=== PATIENT | male | born 1975 ===

== ENCOUNTER 2016-09-28 19:03 | Emergency (ER) | payer OTHER ==
[2016-09-28 19:03] VITALS: BMI 38.4
[2016-09-28 19:07] VITALS: PULSE 69; RESP 18; TEMP 98; O2SAT 99
[2016-09-28 19:08] VITALS: BP 105/75
[2016-09-28] MEDS ORDERED: Naproxen 550 mg Tab PO STA (19:44)
[2016-09-28] MEDS ORDERED: Dexamethasone 4 mg/1 ml IM STA (19:45)
[2016-09-28] MEDS ORDERED: Dexamethasone 4 mg/1 ml ONE (19:48)
[2016-09-28] MEDS ORDERED: Naproxen 550 mg Tab PO ONE (19:48)
--- NOTE | 2016-09-28 20:40 | C.PDOC ---
History Of Present Illness 41 year old male presents to the ED with complaints of lower back pain for the past week. Patient notes being seen in the [facility] clinic yesterday and was given toradol. He states the pain has persisted and denies any trauma, numbness, weakness, or bowel incontinence. Time Seen by Provider: 09/28/16 19:24 Chief Complaint (Nursing): Back Pain History Per: Patient History/Exam Limitations: no limitations Onset/Duration Of Symptoms: Days Current Symptoms Are (Timing): Still Present Quality Of Discomfort: "Pain" Severity: Mild Associated Symptoms: denies: Incontinence, New Weakness, New Numbness Exacerbating Factor(s): Turning, Movement Past Medical History Reviewed: Historical Data, Nursing Documentation, Vital Signs Vital Signs: Last Vital Signs Temp 98 F 09/28/16 19:05 Pulse 69 09/28/16 19:05 Resp 18 09/28/16 19:05 BP 105/75 09/28/16 19:07 Pulse Ox 99 09/28/16 21:16 - Medical History PMH: Hypercholesterolemia, Sleep Apnea Family History: States: No Known Family Hx - Social History Hx Tobacco Use: No Hx Alcohol Use: No Hx Substance Use: No - Immunization History Hx Tetanus Toxoid Vaccination: No Hx Influenza Vaccination: Yes Hx Pneumococcal Vaccination: No Review Of Systems Except As Marked, All Systems Reviewed And Found Negative. Constitutional: Negative for: Fever, Chills, Sweats Respiratory: Negative for: Cough, Shortness of Breath Gastrointestinal: Negative for: Nausea, Vomiting, Abdominal Pain, Diarrhea Musculoskeletal: Positive for: Back Pain (lower back pain) Neurological: Negative for: Weakness, Numbness, Headache, Dizziness Physical Exam - Physical Exam Appears: Non-toxic, No Acute Distress Skin: Warm, Dry Head: Atraumatic, Normacephalic Eye(s): bilateral: Normal Inspection, PERRL, EOMI Ear(s): Bilateral: Normal Oral Mucosa: Moist Neck: Normal ROM, Supple Chest: Symmetrical, No Deformity Cardiovascular: Rhythm Regular, No Friction Rub, No Murmur Respiratory: No Accessory Muscle Use, No Rales, No Rhonchi, No Stridor, No Wheezing Gastrointestinal/Abdominal: Soft, No Tenderness, No Distention, No Guarding, No Rebound Back: No Vertebral Tenderness, Paraspinal Tenderness (paralumbar tenderness) Extremity: Normal ROM, No Tenderness, No Swelling Neurological/Psych: Oriented x3, Normal Speech, Normal Cranial Nerves, Normal Motor, Normal Sensation Gait: Steady ED Course And Treatment O2 Sat by Pulse Oximetry: 99 (on RA) Pulse Ox Interpretation: Normal Medical Decision Making Medical Decision Making: On re-exam, the patient reports improvement of symptoms. Lungs are CTA, heart is RRR, ambulatory in the ED with steady gait. Follow up with the medical doctor /clinic within 1-2 days. Return if worsened. Disposition - Disposition Referrals: Shaik Austin MD [Staff Provider] - Ravinder Waite MD [Non-Staff] - Disposition: HOME/ ROUTINE Disposition Time: 20:39 Condition: GOOD Additional Instructions: Follow up with the medical doctor within 1-2 days. Return if worsened, Prescriptions: traMADol [Ultram] 50 mg PO Q6 PRN #20 tab PRN Reason: Pain Instructions: Acute Low Back Pain (DC) - Clinical Impression Clinical Impression: Low back pain - Scribe Statement The provider has reviewed the documentation as recorded by the Scribnatasha Webster All medical record entries made by the Scribe were at my direction and personally dictated by me. I have reviewed the chart and agree that the record accurately reflects my personal performance of the history, physical exam, medical decision making, and the department course for this patient. I have also personally directed, reviewed, and agree with the discharge instructions and disposition.
== END 2016-09-28 20:43 | disposition home or self-care (01) ==
LOC: C.ER 19:03
DX: M54.5 Low back pain (principal)
CPT/HCPCS: 96372; 99283; J1100

== ENCOUNTER 2017-05-18 11:00 | Emergency (ER) | payer OTHER ==
[2017-05-18 11:00] VITALS: BMI 38.4
[2017-05-18] MEDS ORDERED: Amoxicillin-Clav 875-125 mg Tab PO STA (12:18)
--- NOTE | 2017-05-18 12:46 | C.PDOC ---
History Of Present Illness 41 yo male w/o significant PMHx come in for evaluation of bodychaes, chills, nasal congestion runny nose, sore throat gradually developed for past few days. Otherwise, pt denies high fever, headache, dizziness, drooling, neck pain, CP, SOB, cough, dyspnea, wheezing, abd. pain, V/D, back pain, UTI sx. Ambulate to ED for evaluation, not in any apparent distress. Time Seen by Provider: 05/18/17 11:23 Chief Complaint (Nursing): Fever History Per: Patient Onset/Duration Of Symptoms: Gradual Past Medical History Reviewed: Historical Data, Nursing Documentation, Vital Signs Vital Signs: Last Vital Signs Temp 98.3 F 05/18/17 11:15 Pulse 68 05/18/17 11:15 Resp 16 05/18/17 11:15 BP 108/68 05/18/17 11:15 Pulse Ox 99 05/18/17 11:15 - Medical History PMH: Hypercholesterolemia, Sleep Apnea Family History: States: No Known Family Hx - Social History Hx Tobacco Use: No Hx Alcohol Use: No Hx Substance Use: No - Immunization History Hx Tetanus Toxoid Vaccination: No Hx Influenza Vaccination: Yes Hx Pneumococcal Vaccination: No Review Of Systems Except As Marked, All Systems Reviewed And Found Negative. Constitutional: Positive for: Chills. Negative for: Fever Eyes: Negative for: Vision Change, Redness ENT: Positive for: Nose Discharge, Nose Congestion, Throat Pain, Throat Swelling. Negative for: Ear Discharge Respiratory: Negative for: Cough, Shortness of Breath, Wheezing Gastrointestinal: Negative for: Nausea, Vomiting, Abdominal Pain Genitourinary: Negative for: Dysuria Musculoskeletal: Negative for: Neck Pain, Back Pain Skin: Negative for: Rash Neurological: Negative for: Altered Mental Status Physical Exam - Physical Exam Appears: Well, Non-toxic, No Acute Distress Skin: Normal Color, Warm, Dry, No Rash Head: Normacephalic Eye(s): bilateral: PERRL Ear(s): Bilateral: Normal Nose: No Flaring, Discharge (B/L nasal congestion with scant clear rhinorhhea) Oral Mucosa: Moist Tongue: Normal Appearing Lips: Normal Appearing Throat: Erythema (mod with mild edema), Exudate (scant, Right), No Drooling Neck: Trachea Midline, Supple Lymphatic: No Adenopathy Cardiovascular: Rhythm Regular, No JVD Respiratory: No Decreased Breath Sounds, No Accessory Muscle Use, No Stridor, No Wheezing Gastrointestinal/Abdominal: Soft, No Tenderness, No Distention, No Guarding Extremity: Normal ROM, No Deformity, No Swelling Neurological/Psych: Oriented x3, Normal Speech, Normal Cognition ED Course And Treatment O2 Sat by Pulse Oximetry: 99 Pulse Ox Interpretation: Normal Progress Note: On re-eval, pt is afebrile, hemodynamicaly stable. Non-toxic. Tolerate Po well in ED. PulseOx 99% RA. ENT: exam c/w acute pharyngitis. neck : Supple, (-) meningeal sign. Lungs: CTA B/L, BS equal B/L. ABd: benign. Influenza (-). Pt advised on course of ds. ref. to f/u with PMD in 2-3 days for re-eval. return to ED if any worsening or new changes. Disposition Counseled Patient/Family Regarding: Studies Performed, Diagnosis, Need For Followup, Rx Given - Disposition Referrals: Shaik Austin MD [Staff Provider] - Disposition: HOME/ ROUTINE Disposition Time: 12:23 Condition: STABLE Additional Instructions: ENCOURAGE FLUIDS TAKE MEDICATION PRESCRIBED FOLLOW UP WITH PMD IN 2-3 DAYS FOR RE-EVALUATION. RETURN TO ED IF ANY WORSENING OR NEW CHANGES. Prescriptions: Amoxicillin/Clavulanate [Augmentin 875 MG-125 MG] 1 tab PO BID #14 tab Ibuprofen [Motrin Tab] 400 mg PO Q6 #20 tab Prednisone [Deltasone] 40 mg PO DAILY #6 tablet Instructions: Pharyngitis (ED) Forms: [facility] (Chinese), Work Excuse - Clinical Impression Clinical Impression: Pharyngitis
[2017-05-18] MEDS ORDERED: Amoxicillin-Clav 875-125 mg Tab PO ONE (13:10)
[2017-05-18 13:25] VITALS: BP 100/63; PULSE 75; RESP 20; TEMP 97.9; O2SAT 98
== END 2017-05-18 13:23 | disposition home or self-care (01) ==
LOC: C.ER 11:00
DX: J02.9 Acute pharyngitis, unspecified (principal); E78.00 Pure hypercholesterolemia, unspecified

== ENCOUNTER 2017-05-30 09:01 | Emergency (ER) | payer OTHER ==
[2017-05-30 09:01] VITALS: BMI 38.4
[2017-05-30 09:24] VITALS: BP 120/84; PULSE 84; RESP 18; TEMP 98.1; O2SAT 98
--- NOTE | 2017-05-30 09:57 | C.PDOC ---
History Of Present Illness Yuriy Marrero is a 41 y/o male, who is otherwise well, presenting to the ED for evaluation of a left hand injury. Patient is an employee at [employer]. He reports that a heavy cabinet door shut on his left hand, resulting in pain to the dorsum of the hand with associated swelling. No other complaints. PMD: Dr. Shaik Norman MD Time Seen by Provider: 05/30/17 09:22 Chief Complaint (Nursing): Finger,Hand,&Wrist History Per: Patient History/Exam Limitations: no limitations Onset/Duration Of Symptoms: Days (x 1) Current Symptoms Are (Timing): Still Present Past Medical History Reviewed: Historical Data, Nursing Documentation, Vital Signs Vital Signs: Last Vital Signs Temp 98.1 F 05/30/17 09:15 Pulse 84 05/30/17 09:15 Resp 18 05/30/17 09:15 BP 120/84 05/30/17 09:15 Pulse Ox 98 05/30/17 09:57 - Medical History PMH: Hypercholesterolemia, Sleep Apnea Other Surgeries: Right ankle surgery Family History: States: Unknown Family Hx - Social History Hx Tobacco Use: No Hx Alcohol Use: Yes Hx Substance Use: No - Immunization History Hx Tetanus Toxoid Vaccination: No Hx Influenza Vaccination: Yes (03/2017) Hx Pneumococcal Vaccination: No Review Of Systems Except As Marked, All Systems Reviewed And Found Negative. Musculoskeletal: Positive for: Hand Pain (left) Neurological: Negative for: Weakness, Numbness Physical Exam - Physical Exam Appears: Non-toxic, No Acute Distress Extremity: Tenderness (over the 2nd and 3rd metacarpal phalangeal joints with some bruising), Capillary Refill (< 2 sec) Pulses: Left Radial: Normal, Right Radial: Normal Neurological/Psych: Oriented x3, Normal Speech ED Course And Treatment O2 Sat by Pulse Oximetry: 98 (RA) Pulse Ox Interpretation: Normal - Other Rad X-Ray Left Hand X-Ray: Read By Radiologist Interpretation: No evidence of acute displaced fracture nor dislocation. Medical Decision Making Medical Decision Making: Time: 9:37 Initial Impression: 41 year old male with left hand injury Initial Plan: * Tylenol 975 mg PO * Motrin 600 mg PO * X-Ray Left Hand X-Ray shows no fracture, as read by me. Patient is medically stable and will follow up with orthopedist or primary doctor for further evaluation. There is agreement to discharge plan. Return to ER if symptoms worsen. Disposition Counseled Patient/Family Regarding: Studies Performed, Diagnosis, Need For Followup - Disposition Disposition: HOME/ ROUTINE Disposition Time: 09:55 Condition: STABLE Instructions: RICE Therapy (ED) Forms: [facility] (Yoruba) - POA Present On Arrival: None - Clinical Impression Clinical Impression: Contusion of left hand - Scribe Statement The provider has reviewed the documentation as recorded by the Scribe (Bernadette Randall) All medical record entries made by the Scribe were at my direction and personally dictated by me. I have reviewed the chart and agree that the record accurately reflects my personal performance of the history, physical exam, medical decision making, and the department course for this patient. I have also personally directed, reviewed, and agree with the discharge instructions and disposition.
--- NOTE | 2017-05-30 10:34 | RAD ---
PROCEDURE: Left hand dated 05/30/2017. Three standard views left hand performed. No prior study available for comparison however correlation made with prior radiographs of the right hand 10/19/2015. HISTORY: Trauma COMPARISON: None. FINDINGS: BONES: No evidence of acute displaced fracture nor dislocation the osseous structures appear intact. No cortical destructive changes. JOINTS: Joint spaces preserved. No significant osteoarthritic changes. SOFT TISSUES: Normal. OTHER FINDINGS: None. IMPRESSION: No evidence of acute displaced fracture nor dislocation. If symptoms persist or occult fracture suspected clinically, consider repeat radiographs in 5-10 days as most fractures should become radiographically evident this timeframe. Normal left hand radiographs.
== END 2017-05-30 10:13 | disposition home or self-care (01) ==
LOC: C.ER 09:01
DX: S60.222A Contusion of left hand, initial encounter (principal); W23.0XXA Caught, crushed, jammed, or pinched between moving objects, initial encounter; Y92.238 Other place in hospital as the place of occurrence of the external cause; Y99.0 Civilian activity done for income or pay

== ENCOUNTER 2017-06-26 11:07 | Emergency (ER) | payer OTHER ==
[2017-06-26 11:11] VITALS: BMI 38.0
[2017-06-26 11:12] VITALS: BP 125/76; PULSE 93; RESP 18; TEMP 99.3; O2SAT 98
--- NOTE | 2017-06-26 11:51 | C.PDOC ---
History Of Present Illness 41 year old male, who is a [employer] employee, presents the ED for evaluation of hot/cold sensation, headache, sore throat, generalized body aches , runny nose, and cough which began yesterday. Patient reports he found relief after taking Tylenol. Patient denies chest pain, shortness of breath, nausea, vomiting. Time Seen by Provider: 06/26/17 11:35 Chief Complaint (Nursing): Flu-like Symptoms History Per: Patient History/Exam Limitations: no limitations Onset/Duration Of Symptoms: Hrs Current Symptoms Are (Timing): Still Present Location Of Pain: Diffuse Myalgias, Headache Associated Symptoms: Sore Throat, Cough Additional History Per: Patient Past Medical History Reviewed: Historical Data, Nursing Documentation, Vital Signs Vital Signs: Last Vital Signs Temp 99.3 F 06/26/17 11:11 Pulse 93 H 06/26/17 11:11 Resp 18 06/26/17 11:11 BP 125/76 06/26/17 11:11 Pulse Ox 98 06/26/17 13:48 - Medical History PMH: No Chronic Diseases Surgical History: No Surg Hx Family History: States: Unknown Family Hx Review Of Systems Constitutional: Positive for: Other (hot/cold sensation ) ENT: Positive for: Nose Discharge, Throat Pain Cardiovascular: Negative for: Chest Pain Respiratory: Positive for: Cough. Negative for: Shortness of Breath Gastrointestinal: Negative for: Nausea, Vomiting Musculoskeletal: Positive for: Other (generalized body aches ) Neurological: Positive for: Headache Physical Exam - Physical Exam Appears: Non-toxic, No Acute Distress Skin: Normal Color, Warm, Dry Head: Atraumatic, Normacephalic Eye(s): bilateral: Normal Inspection Ear(s): Bilateral: Normal Nose: Normal, No Discharge Oral Mucosa: Moist Throat: Normal, No Erythema, No Exudate Neck: Supple Cardiovascular: Rhythm Regular, No Murmur Respiratory: Normal Breath Sounds, No Rales, No Rhonchi, No Wheezing Extremity: Normal ROM, Capillary Refill (less than 2 seconds ) Neurological/Psych: Oriented x3, Normal Speech, Normal Cognition ED Course And Treatment O2 Sat by Pulse Oximetry: 98 (on RA) Pulse Ox Interpretation: Normal Medical Decision Making Medical Decision Making: Progress: Influenza A/B test ordered and resulted negative. Tamiflu PO, Motrin PO and Tylenol PO administered. Disposition Counseled Patient/Family Regarding: Diagnosis, Need For Followup - Disposition Disposition: HOME/ ROUTINE Disposition Time: 13:37 Condition: STABLE Prescriptions: Ibuprofen [Motrin] 600 mg PO TID #15 tab Oseltamivir [Tamiflu] 1 cap PO BID #10 cap Instructions: Viral Syndrome (ED) Forms: General Discharge Instructions, [facility] (Chadian), Work Excuse - POA Present On Arrival: None - Clinical Impression Clinical Impression: Influenza-like illness - Scribe Statement The provider has reviewed the documentation as recorded by the Scribe (Desiree Carter) Provider Attestation: All medical record entries made by the Scribe were at my direction and personally dictated by me. I have reviewed the chart and agree that the record accurately reflects my personal performance of the history, physical exam, medical decision making, and the department course for this patient. I have also personally directed, reviewed, and agree with the discharge instructions and disposition.
== END 2017-06-26 13:58 | disposition home or self-care (01) ==
LOC: MERGE 11:07 → C.ER 11:07
DX: J11.1 Influenza due to unidentified influenza virus with other respiratory manifestations (principal)

== ENCOUNTER 2017-09-17 07:00 | Observation (INO) | payer OTHER ==
[2017-09-17 07:00] VITALS: BMI 38.4
[2017-09-17] MEDS ORDERED: Sodium Chloride 0.9% 1,000 ML IV ONE (07:30)
[2017-09-17] MEDS ORDERED: Sodium Chloride 0.9% 1,000 ML ONE (07:37)
[2017-09-17 07:55] LABS: BASO # 0.2 K/uL (0.0-0.2); BASO % 1.2 % (0.0-2.0); EOS # 0.1 K/uL (0.0-0.7); HEMOGLOBIN 15.6 g/dL (12.0-18.0); LYMPH # 1.9 K/uL (1.0-4.3); LYMPH % 13.2 % (20.0-40.0); MEAN CELL VOLUME 87.6 fL (80.0-94.0); MEAN CORPUSCULAR HEMOGLOBIN 30.2 pg (27.0-31.0); MEAN CORPUSCULAR HGB CONC 34.4 g/dL (33.0-37.0); MEAN PLATELET VOLUME 9.7 fL (7.2-11.7); MONO # 1.4 K/uL (0.0-0.8); MONO % 9.9 % (0.0-10.0); NEUT # 10.9 K/uL (1.8-7.0); NEUT % 74.7 % (50.0-75.0); RBC 5.15 Mil/uL (4.40-5.90); RED CELL DISTRIBUTION WIDTH 13.9 % (11.5-14.5); WHITE BLOOD COUNT 14.6 K/uL (4.8-10.8)
[2017-09-17 08:00] LABS: URINE BILIRUBIN NEGATIVE (NEGATIVE); URINE BLOOD NEGATIVE (NEGATIVE); URINE CLARITY Clear (Clear); URINE COLOR Yellow (YELLOW); URINE GLUCOSE (UA) NORMAL (Normal); URINE LEUKOCYTE ESTERASE NEG Leu/uL (Negative); URINE PROTEIN NEGATIVE (NEGATIVE); URINE UROBILINOGEN NORMAL mg/dL (0.2-1.0)
[2017-09-17 08:07] LABS: ALB/GLOB RATIO 1.3 (1.0-2.1); ALBUMIN 4.4 g/dL (3.5-5.0); ALT/SGPT 41 U/L (21-72); AST/SGOT 42 U/L (17-59); BLOOD UREA NITROGEN 18 mg/dL (9-20); CALCIUM 8.8 mg/dl (8.6-10.4); GFR AFRICAN-AMERICAN > 60; GFR NON-AFRICAN AMERICAN > 60; LIPASE 97 U/L (23-300)
[2017-09-17] MEDS ORDERED: Iodixanol 320 mg/ml 150 ml Bottle IV ONE (09:06)
--- NOTE | 2017-09-17 09:41 | CT ---
EXAM: CT abdomen/pelvis with intravenous contrast CLINICAL HISTORY: Right-sided abdominal pain TECHNIQUE: 2.5 mm contiguous axial sections were acquired through the abdomen and pelvis following the intravenous administration of contrast material. Sagittal and coronal images were reformatted from the axial scan. . Intravenous contrast administered: 100 mL Visipaque 320 Total exam DLP: 1338.45 mGy-cm All CT scans at this facility use 1 or more dose reduction techniques, viz.: Automated exposure control; mA/kv adjustment per patient size (including targeted exams where dose is matched to indication ; i.e. head); or iterative reconstruction technique. COMPARISON: No relevant prior examination is available FINDINGS: The lung bases are free of consolidation or pleural effusion. The liver is normal in size, contour and attenuation. There is no mass. There is no biliary dilatation. The gallbladder is normal in appearance without evidence of cholelithiasis. There is no mural thickening or pericholecystic fluid The spleen is normal in size, and there is no evidence of focal mass. Pancreas is unremarkable. There is no mass or ductal dilatation seen. There is no peripancreatic fluid. There is no adrenal mass. There is no renal mass. There is mild right hydroureteronephrosis. There is an obstructing 7 mm calculus at the right ureterovesical junction. There is a nonobstructing 2 mm left lower pole renal calculus. There is no left hydronephrosis. There is no retroperitoneal or pelvic lymphadenopathy. There are no abnormal bowel loops appreciated. There is no bowel obstruction. A normal appendix is identified. The urinary bladder is significant for mild focal mural thickening at the level of the right ureterovesical junction, consistent with currently obstructed calculus at the UVJ. The prostate is normal in size. There is no ascites or pneumoperitoneum. There is no osseous abnormality appreciated. IMPRESSION: Obstructing 7 mm calculus at the right ureterovesical junction. 2 mm nonobstructing left lower pole renal calculus. Mild right hydroureteronephrosis. No other significant abnormality.
--- NOTE | 2017-09-17 10:27 | US ---
Testicular ultrasound History: Right testicular pain. Comparison: None available. Technique: Real-time sonography was performed through the scrotum. Findings: Right testes: 5.6 x 2.6 x 3.5 centimeters. Normal flow. Right epididymis: 1.8 x 1.0 x 1.4 centimeters. Normal flow. Left testes: 5.3 x 2.5 x 3.1 centimeters. Normal flow. Left epididymis: 1.4 x 0.9 x 1.4 centimeters. Normal flow. Impression: Unremarkable sonographic evaluation of the scrotum.
[2017-09-17] MEDS ORDERED: cefTRIAXone IV 1 gm in Dextros 50 ML IVPB ONE ×2 (10:37→10:45)
--- NOTE | 2017-09-17 11:04 | C.PDOC ---
History Of Present Illness 42 y/o male presents to the ER complaining of right-sided abdominal pain which has been present for the past 2 days.Patient reports that he has nausea and vomiting. Patient notes that he also had 1-2 short episodes of testicular pain. He denies having back pain, hematuria, dysuria, and trauma. Chief Complaint (Nursing): Male Genitourinary History Per: Patient History/Exam Limitations: no limitations Onset/Duration Of Symptoms: Days Current Symptoms Are (Timing): Still Present Severity: Moderate Associated Symptoms: Nausea, Vomiting. denies: Fever, Chills, Back Pain, Urinary Symptoms Past Medical History Reviewed: Historical Data, Nursing Documentation, Vital Signs Vital Signs: Last Vital Signs Temp 97.9 F 09/17/17 16:08 Pulse 82 09/17/17 16:08 Resp 18 09/17/17 16:08 BP 117/79 09/17/17 16:08 Pulse Ox 98 09/17/17 16:08 - Medical History PMH: Hypercholesterolemia, Sleep Apnea Other Surgeries: Hx of surgeries Family History: States: No Known Family Hx - Social History Hx Tobacco Use: No Hx Alcohol Use: Yes Hx Substance Use: No - Immunization History Hx Tetanus Toxoid Vaccination: Yes Hx Influenza Vaccination: Yes Hx Pneumococcal Vaccination: No Review Of Systems Except As Marked, All Systems Reviewed And Found Negative. Constitutional: Negative for: Fever, Chills Gastrointestinal: Positive for: Abdominal Pain (right-sided abdominal pain') Genitourinary: Positive for: Other (testicular pain). Negative for: Dysuria, Hematuria Musculoskeletal: Negative for: Back Pain Physical Exam - Physical Exam Appears: Non-toxic, No Acute Distress Skin: Normal Color, Warm Head: Atraumatic, Normacephalic Eye(s): bilateral: Normal Inspection Nose: Normal Oral Mucosa: Moist Neck: Supple Chest: Symmetrical Cardiovascular: Rhythm Regular Respiratory: Normal Breath Sounds, No Rales, No Rhonchi, No Wheezing Gastrointestinal/Abdominal: Soft, Tenderness (right-sided abdominal tenderness( lower > upper)) Neurological/Psych: Oriented x3, Normal Speech ED Course And Treatment - Laboratory Results Result Diagrams: 09/17/17 07:46 09/17/17 07:46 O2 Sat by Pulse Oximetry: 99 (RA) Pulse Ox Interpretation: Normal - CT Scan/US Testicular US Other Rad Studies (CT/US): Read By Radiologist, Radiology Report Reviewed CT/US Interpretation: Testicular ultrasound. History: Right testicular pain. Comparison: None available. Technique: Real-time sonography was performed through the scrotum. Findings: Right testes: 5.6 x 2.6 x 3.5 centimeters. Normal flow. Right epididymis: 1.8 x 1.0 x 1.4 centimeters. Normal flow. Left testes: 5.3 x 2.5 x 3.1 centimeters. Normal flow. Left epididymis: 1.4 x 0.9 x 1.4 centimeters. Normal flow. Impression: Unremarkable sonographic evaluation of the scrotum. CT abd/pelvis Other Rad Studies (CT/US): Read By Radiologist, Radiology Report Reviewed CT/US Interpretation: EXAM: CT abdomen/pelvis with intravenous contrast. CLINICAL HISTORY: Right-sided abdominal pain. TECHNIQUE: 2.5 mm contiguous axial sections were acquired through the abdomen and pelvis following the intravenous administration of contrast material. Sagittal and coronal images were reformatted from the axial scan. . Intravenous contrast administered: 100 mL Visipaque 320. Total exam DLP: 1338.45 mGy-cm. All CT scans at this facility use 1 or more dose reduction techniques, viz.: Automated exposure control; mA/kv adjustment per patient size (including targeted exams where dose is matched to indication ; i.e. head); or iterative reconstruction technique. COMPARISON: No relevant prior examination is available. FINDINGS: The lung bases are free of consolidation or pleural effusion. The liver is normal in size, contour and attenuation. There is no mass. There is no biliary dilatation. The gallbladder is normal in appearance without evidence of cholelithiasis. There is no mural thickening or pericholecystic fluid. The spleen is normal in size, and there is no evidence of focal mass. Pancreas is unremarkable. There is no mass or ductal dilatation seen. There is no peripancreatic fluid. There is no adrenal mass. There is no renal mass. There is mild right hydroureteronephrosis. There is an obstructing 7 mm calculus at the right ureterovesical junction. There is a nonobstructing 2 mm left lower pole renal calculus. There is no left hydronephrosis. There is no retroperitoneal or pelvic lymphadenopathy. There are no abnormal bowel loops appreciated. There is no bowel obstruction. A normal appendix is identified. The urinary bladder is significant for mild focal mural thickening at the level of the right ureterovesical junction, consistent with currently obstructed calculus at the UVJ. The prostate is normal in size. There is no ascites or pneumoperitoneum. There is no osseous abnormality appreciated. IMPRESSION: Obstructing 7 mm calculus at the right ureterovesical junction. 2 mm nonobstructing left lower pole renal calculus. Mild right hydroureteronephrosis. No other significant abnormality. Progress Note: Labs and CT-Abd & Pelv ordered. Patient given IV Fluids, Pepcid IV, Zofran IV, and Flomax PO. Case discussed with Dr. Troy Carter. Patient will be placed in observation for obstructive kidney stone. 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 - Scribe Statement The provider has reviewed the documentation as recorded by the Regis Koroma Provider Attestation: All medical record entries made by the Greyibnatasha were at my direction and personally dictated by me. I have reviewed the chart and agree that the record accurately reflects my personal performance of the history, physical exam, medical decision making, and the department course for this patient. I have also personally directed, reviewed, and agree with the discharge instructions and disposition.
--- NOTE | 2017-09-17 13:39 | CP.PCM.HP ---
Past Patient History - Infectious Disease Hx of Infectious Diseases: None - Past Social History Smoking Status: Current Some Days Smoker - CARDIAC Hx Hypercholesterolemia: Yes - PULMONARY Hx Sleep Apnea: Yes - PSYCHIATRIC Hx Substance Use: No - SURGICAL HISTORY Hx Surgeries: Yes Hx Orthopedic Surgery: Yes (R ankle) - ANESTHESIA Hx Anesthesia: Yes Hx Anesthesia Reactions: No Meds Allergies/Adverse Reactions: Allergies Allergy/AdvReac Type Severity Reaction Status Date / Time seasonal Allergy Uncoded 09/17/17 07:12 sister in law barbeque sauce Allergy Uncoded 09/17/17 07:12 Physical Exam - Constitutional Appears: Well - Head Exam Head Exam: ATRAUMATIC, NORMAL INSPECTION, NORMOCEPHALIC - Eye Exam Eye Exam: EOMI, Normal appearance, PERRL Pupil Exam: NORMAL ACCOMODATION, PERRL - ENT Exam ENT Exam: Mucous Membranes Moist, Normal Exam - Neck Exam Neck exam: Positive for: Normal Inspection - Respiratory Exam Respiratory Exam: Decreased Breath Sounds - Cardiovascular Exam Cardiovascular Exam: REGULAR RHYTHM, +S1, +S2 - GI/Abdominal Exam GI & Abdominal Exam: Diminished Bowel Sounds, Soft - Rectal Exam Rectal Exam: Deferred Results - Vital Signs Recent Vital Signs: Last Vital Signs Temp 98.7 F 09/17/17 10:20 Pulse 84 09/17/17 12:29 Resp 20 09/17/17 12:29 BP 128/87 09/17/17 12:29 Pulse Ox 98 09/17/17 12:29 - Labs Result Diagrams: 09/17/17 07:46 09/17/17 07:46 Labs: Laboratory Results - last 24 hr 09/17/17 09/17/17 09/17/17 07:46 07:46 07:46 WBC 14.6 H D RBC 5.15 Hgb 15.6 Hct 45.2 MCV 87.6 MCH 30.2 MCHC 34.4 RDW 13.9 Plt Count 217 MPV 9.7 Neut % (Auto) 74.7 Lymph % (Auto) 13.2 L [place] % (Auto) 9.9 Eos % (Auto) 1.0 Baso % (Auto) 1.2 Neut # (Auto) 10.9 H Lymph # (Auto) 1.9 [place] # (Auto) 1.4 H Eos # (Auto) 0.1 Baso # (Auto) 0.2 Sodium 139 Potassium 4.0 Chloride 99 Carbon Dioxide 25 Anion Gap 19 BUN 18 Creatinine 1.2 Est GFR ( Amer) > 60 Est GFR (Non-Af Amer) > 60 Random Glucose 125 H Calcium 8.8 Total Bilirubin 1.1 AST 42 ALT 41 Alkaline Phosphatase 63 Total Protein 7.9 Albumin 4.4 Globulin 3.5 Albumin/Globulin Ratio 1.3 Lipase 97 Urine Color Yellow Urine Clarity Clear Urine pH 6.0 Ur Specific [place] 1.011 Urine Protein Negative Urine Glucose (UA) Normal Urine Ketones Negative Urine Blood Negative Urine Nitrate Negative Urine Bilirubin Negative Urine Urobilinogen Normal Ur Leukocyte Esterase Neg Urine WBC (Auto) < 1 Urine RBC (Auto) 1
[2017-09-18] MEDS ORDERED: Lactated Ringer's 1,000 ML IV SCH (09:30)
--- NOTE | 2017-09-18 09:33 | CP.PCM.HP ---
History of Present Illness - History of Present Illness History of Present Illness: Chief Complaint: Abdominal Pain Mr. Marrero is a 42 year old Male with PMHx of HLD, Sleep Apnea presented to the ED with abdominal pain x 1 day. Patient reports he started to feel right testicular pain that radiated up into his right abdomen. Pain was sharp, intermittent, and associated with nausea. Patient took Tylenol which alleviated his pain. He Patient reports a few months ago he urinated and felt something sharp coming out of his urethra and heard a "clank" into the toilet bowl. Denied any associated fever, chills, dysuria, hematuria, or penile discharge. PMHx: HLD, Sleep Apnea PSHx: R ankle surgery Meds: Vitamins, [place] 3s All: NKDA SHx: Admits to smoking 2-4 cigarettes when he drinks socially, denied any illicit drug use FHx: Mother - HTN, Father- healthy Present on Admission - Present on Admission Any Indicators Present on Admission: No Past Patient History - Infectious Disease Hx of Infectious Diseases: None - Past Social History Smoking Status: Current Some Days Smoker - CARDIAC Hx Hypercholesterolemia: Yes - PULMONARY Hx Sleep Apnea: Yes - PSYCHIATRIC Hx Substance Use: No - SURGICAL HISTORY Hx Surgeries: Yes Hx Orthopedic Surgery: Yes (R ankle) - ANESTHESIA Hx Anesthesia: Yes Hx Anesthesia Reactions: No Meds Allergies/Adverse Reactions: Allergies Allergy/AdvReac Type Severity Reaction Status Date / Time seasonal Allergy Uncoded 09/17/17 07:12 sister in law barbeque sauce Allergy Uncoded 09/17/17 07:12 Physical Exam - Constitutional Appears: No Acute Distress - Head Exam Head Exam: NORMAL INSPECTION, NORMOCEPHALIC - Eye Exam Eye Exam: EOMI, Normal appearance, PERRL Pupil Exam: NORMAL ACCOMODATION - ENT Exam ENT Exam: Mucous Membranes Moist - Respiratory Exam Respiratory Exam: Clear to Auscultation Bilateral, NORMAL BREATHING PATTERN. absent: Decreased Breath Sounds, Wheezes - Cardiovascular Exam Cardiovascular Exam: REGULAR RHYTHM, RRR - GI/Abdominal Exam GI & Abdominal Exam: Normal Bowel Sounds, Soft. absent: Distended, Organomegaly , Tenderness - Rectal Exam Rectal Exam: Deferred - Exam Exam: absent: Scrotal Swelling - Extremities Exam Extremities exam: Positive for: normal inspection, pedal pulses present. Negative for: pedal edema, tenderness - Back Exam Back exam: CVA tenderness (R) - Neurological Exam Neurological exam: Alert, CN II-XII Intact, Oriented x3 - Psychiatric Exam Psychiatric exam: Normal Affect, Normal Mood - Skin Skin Exam: Dry, Intact, Normal Color, Warm Results - Vital Signs Recent Vital Signs: Last Vital Signs Temp 97.4 F L 09/18/17 07:00 Pulse 65 09/18/17 07:00 Resp 18 09/18/17 07:00 BP 112/73 09/18/17 07:00 Pulse Ox 99 09/18/17 07:00 - Labs Result Diagrams: 09/17/17 07:46 09/17/17 07:46 Assessment & Plan - Assessment and Plan (Free Text) Assessment: Mr. Marrero is a 42 year old Male with PMHx of HLD, Sleep Apnea presented to the ED with abdominal pain x 1 day. Patient was found to have a 7mm obstructing stone in the right ureterovesical junction. Plan: Nephrolithiasis with Obstructing Stone in (R) UVJ Hydroureteronephrosis Dr. Jonathan Boateng consulted - help appreciated Imaging: CT abdomen & pelvis: Obstructing 7mm calculus at the RIGHT UVJ. 2mm nonobstructing left lower pole renal calculus. Mild right hydroureteronephrosis Meds: LR @ 100cc/hr Analgesics as needed Gentamycin daily Hx HLD Hx Sleep Apnea DW Dr. Mcdonough, Cierra So DO, PGY-1
--- NOTE | 2017-09-18 11:35 | RAD ---
HISTORY: 7mm obstructing stone in right UVJ COMPARISON: September 17, 2017. CT abdomen and pelvis. Summary of findings on the comparison examination: Right UVJ calculus FINDINGS: BOWEL: Normal. No obstruction. No free air. BONES: Normal. OTHER FINDINGS: Calculus identified in the urinary bladder adjacent to the right is documented on the current study and marked for review. IMPRESSION: Calculus in the urinary bladder confirmation finding on recent CT scan.
--- NOTE | 2017-09-18 12:33 | PCM.URO ---
Urology Progress Note - Objective Lab Studies: Reviewed (dx: urolithiasis plans :full note to follow thanks for gu consult) Intake & Output: Intake & Output 09/17/17 09/18/17 09/18/17 18:59 06:59 18:59 Weight 265 lb Vital Signs: Vital Signs - 24 hr 09/17/17 09/17/17 09/17/17 15:34 16:08 17:46 Temperature 98.0 F 97.9 F Pulse Rate 82 82 Respiratory 18 18 Rate Blood Pressure 115/73 117/79 O2 Sat by Pulse 98 98 99 Oximetry 09/17/17 09/18/17 23:10 07:00 Temperature 99.1 F 97.4 F L Pulse Rate 74 65 Respiratory 20 18 Rate Blood Pressure 114/69 112/73 O2 Sat by Pulse 97 99 Oximetry
[2017-09-18 16:33] LABS: BASO # 0.2 K/uL (0.0-0.2); BASO % 1.6 % (0.0-2.0); EOS # 0.4 K/uL (0.0-0.7); EOS % 3.1 % (0.0-4.0); HEMOGLOBIN 15.6 g/dL (12.0-18.0); LYMPH # 2.3 K/uL (1.0-4.3); LYMPH % 18.7 % (20.0-40.0); MEAN CELL VOLUME 87.3 fL (80.0-94.0); MEAN CORPUSCULAR HEMOGLOBIN 29.4 pg (27.0-31.0); MEAN CORPUSCULAR HGB CONC 33.7 g/dL (33.0-37.0); MEAN PLATELET VOLUME 9.3 fL (7.2-11.7); MONO # 0.8 K/uL (0.0-0.8); MONO % 6.7 % (0.0-10.0); NEUT # 8.4 K/uL (1.8-7.0); NEUT % 69.9 % (50.0-75.0); RBC 5.3 Mil/uL (4.40-5.90); RED CELL DISTRIBUTION WIDTH 13.5 % (11.5-14.5)
[2017-09-18 16:46] LABS: ALB/GLOB RATIO 1.1 (1.0-2.1); ALBUMIN 4.4 g/dL (3.5-5.0); ALT/SGPT 65 U/L (21-72); AST/SGOT 47 U/L (17-59); BLOOD UREA NITROGEN 15 mg/dL (9-20); CALCIUM 8.9 mg/dl (8.6-10.4); GFR AFRICAN-AMERICAN > 60; GFR NON-AFRICAN AMERICAN > 60
[2017-09-18 16:49] VITALS: BP 117/78; PULSE 83; RESP 20; TEMP 99.4; O2SAT 98
--- NOTE | 2017-09-18 16:55 | CT ---
PROCEDURE: CT Abdomen and Pelvis without intravenous contrast HISTORY: 7mm obstructing stone in R UVJ COMPARISON: 09/17/2017 TECHNIQUE: Without contrast.. Contrast Dose: 0 Radiation dose: Total exam DLP = Total exam DLP = 1186.57 mGy-cm. This CT exam was performed using one or more of the following dose reduction techniques: Automated exposure control, adjustment of the mA and/or kV according to patient size, and/or use of iterative reconstruction technique. FINDINGS: LOWER THORAX: Unremarkable. LIVER: Unremarkable. No gross lesion or ductal dilatation. GALLBLADDER AND BILE DUCTS: Unremarkable. PANCREAS: Unremarkable. No gross lesion or ductal dilatation. SPLEEN: Unremarkable. ADRENALS: Unremarkable. No mass. KIDNEYS AND URETERS: There is some retained contrast material seen within the right renal parenchyma from prior examination of 09/17/2017. This likely resulted from mechanical urinary tract obstruction. There is no hydronephrosis. There is no renal mass. There is no renal calculus. There is no hydroureter. There is mild periureteric stranding. The previously identified calculus at the right ureterovesical junction is no longer evident. Please note that there is persistent mild focal mural thickening at the right ureterovesical junction. Though this may be the result of a recently passed calculus, consideration should be given to follow-up with cystoscopy to exclude neoplasm. There is a 2 mm left lower pole renal calculus. This is nonobstructing. There is no left hydronephrosis. There is no left renal mass. VASCULATURE: Unremarkable. No aortic aneurysm. BOWEL: Sigmoid diverticulosis. No evidence diverticulitis. No bowel obstruction. APPENDIX: Unremarkable. Normal appendix. PERITONEUM: Unremarkable. No free fluid. No free air. LYMPH NODES: Unremarkable. No enlarged lymph nodes. BLADDER: Focal mural thickening at right ureterovesical junction as above. Consider follow-up with cystoscopy. REPRODUCTIVE: Normal prostate BONES: No acute fracture. OTHER FINDINGS: None. IMPRESSION: Previously identified right ureterovesical junction calculus is no longer identified. No evidence of urinary tract dilatation. There is some retained contrast in the right renal parenchyma likely resulting from previously diagnosed obstruction. 2 mm nonobstructing left lower pole renal calculus. Mild focal mural thickening at the right ureterovesical junction. Consider follow-up with cystoscopy.
--- NOTE | 2017-09-18 17:57 | CP.PCM.PN ---
Subjective - Date & Time of Evaluation Date of Evaluation: 09/18/17 Time of Evaluation: 17:56 - Subjective Subjective: Patient had a repeat CT scan of the abdomen and pelvis without contrast. Reported as having no stone in the right UVJ junction, probably past. Hydronephrosis also improving. Related patient has no pain. I spoke to the urologist, patient can be discharged home today. I advised him to increase fluid intake. Came to reduce. Flomax daily. Patient will followup with the urologist this week, in my office next week. I will do a blood works including renal functions and will follow the patient Objective - Vital Signs/Intake and Output Vital Signs (last 24 hours): Temp Pulse Resp BP Pulse Ox 99.4 F 83 20 117/78 98 09/18/17 16:48 09/18/17 16:48 09/18/17 16:48 09/18/17 16:48 09/18/17 16:48 Intake and Output: 09/18/17 09/18/17 06:59 18:59 Intake Total 700 Balance 700 - Medications Medications: Current Medications Acetaminophen (Tylenol 325mg Tab) 650 mg PO Q6 PRN PRN Reason: Fever >100.4 F Lactated Ringer's (Lactated Ringer's) 1,000 mls @ 100 mls/hr IV .Q10H NILSA Last Admin: 09/18/17 09:50 Dose: 100 mls/hr Ketorolac Tromethamine (Toradol) 30 mg IVP Q6 PRN PRN Reason: Pain, severe (8-10) - Labs Labs: 09/18/17 16:24 09/18/17 16:24
[2017-09-18] MEDS ORDERED: Pneumococcal 23-Valent Vaccine IM ONE (17:59)
== END 2017-09-18 18:32 | disposition home or self-care (01) ==
LOC: C.ER 07:00 → C.9E 10:38 → C.5S 15:15
PROVIDERS: ADMIT Internal Medicine; ATTEND Internal Medicine
DX: N13.2 Hydronephrosis with renal and ureteral calculous obstruction (principal); Z87.891 Personal history of nicotine dependence; N50.811 Right testicular pain; G47.30 Sleep apnea, unspecified; E78.5 Hyperlipidemia, unspecified
CPT/HCPCS: 36415; 74019; 74176; 74177; 76870; 80053; 81001; 83690; 85025; 87040; 87086; 90471; 90732; 96360; 96374; 99285; G0378; J0696; J1580; J1885; J2405; J7040; J7120; Q9967

== ENCOUNTER 2018-08-09 11:00 | Emergency (ER) | payer OTHER ==
[2018-08-09 11:00] VITALS: BMI 38.4
[2018-08-09 11:11] VITALS: RESP 18
[2018-08-09] MEDS ORDERED: LIDOCAINE IV STA (11:14)
[2018-08-09] MEDS ORDERED: SODIUM CHLORIDE 0.9% IV STA (11:14)
[2018-08-09] MEDS ORDERED: Sodium Chloride 0.9% 1,000 ML IV STA (11:14)
[2018-08-09] MEDS ORDERED: Sodium Chloride 0.9% 1,000 ML ONE (11:28)
[2018-08-09 11:41] LABS: URINE BILIRUBIN NEGATIVE (NEGATIVE); URINE BLOOD 1+ (NEGATIVE); URINE CLARITY Clear (Clear); URINE COLOR Colorless (YELLOW); URINE GLUCOSE (UA) NORMAL (Normal); URINE LEUKOCYTE ESTERASE NEG Leu/uL (Negative); URINE PROTEIN NEGATIVE (NEGATIVE); URINE UROBILINOGEN NORMAL mg/dL (0.2-1.0)
[2018-08-09 11:51] LABS: BASO # 0.1 K/uL (0.0-0.2); BASO % 0.8 % (0.0-2.0); EOS # 0.3 K/uL (0.0-0.7); EOS % 3.8 % (0.0-4.0); LYMPH # 2.4 K/uL (1.0-4.3); LYMPH % 28.3 % (20.0-40.0); MEAN CELL VOLUME 87.8 fL (80.0-94.0); MEAN CORPUSCULAR HEMOGLOBIN 30.1 pg (27.0-31.0); MEAN CORPUSCULAR HGB CONC 34.3 g/dL (33.0-37.0); MEAN PLATELET VOLUME 9.2 fL (7.2-11.7); MONO # 0.6 K/uL (0.0-0.8); MONO % 6.5 % (0.0-10.0); NEUT # 5.1 K/uL (1.8-7.0); NEUT % 60.6 % (50.0-75.0); RBC 4.97 Mil/uL (4.40-5.90); RED CELL DISTRIBUTION WIDTH 13.6 % (11.5-14.5); WHITE BLOOD COUNT 8.5 K/uL (4.8-10.8)
[2018-08-09 12:01] LABS: ALB/GLOB RATIO 1.5 (1.0-2.1); ALBUMIN 4.7 g/dL (3.5-5.0); ALT/SGPT 66 U/L (21-72); AST/SGOT 54 U/L (17-59); BLOOD UREA NITROGEN 15 mg/dL (9-20); CALCIUM 8.9 mg/dl (8.6-10.4); GFR NON-AFRICAN AMERICAN > 60; LIPASE 215 U/L (23-300)
--- NOTE | 2018-08-09 12:21 | CT ---
PROCEDURE: CT Abdomen and Pelvis without Oral or IV contrast. HISTORY: l flank/abd pain COMPARISON: CT abdomen and pelvis performed 09/18/17, renal ultrasound 11/22/17 TECHNIQUE: Contiguous axial images of the abdomen and pelvis. No oral or IV contrast administered. Coronal and Sagittal reformats generated and reviewed. Radiation dose: Total exam DLP = 1309.03 mGy-cm. This CT exam was performed using one or more of the following dose reduction techniques: Automated exposure control, adjustment of the mA and/or kV according to patient size, and/or use of iterative reconstruction technique. FINDINGS: There is limited evaluation of the solid organs without the administration of IV contrast. LOWER THORAX: No visible consolidation, pleural effusion, or pneumothorax. Small hiatal hernia/distal esophageal wall thickening. LIVER: Unremarkable unenhanced appearance. GALLBLADDER AND BILE DUCTS: Unremarkable unenhanced appearance. PANCREAS: Unremarkable unenhanced appearance. SPLEEN: Unremarkable unenhanced appearance. ADRENALS: Unremarkable unenhanced appearance. KIDNEYS AND URETERS: No hydronephrosis or obstructing renal calculus. Punctate nonobstructing bilateral renal calculi. BLADDER: The urinary bladder appears unremarkable. REPRODUCTIVE: The prostate gland measures approximately 4.3 x 3.8 cm. APPENDIX: The appendix appears within normal limits of caliber. No secondary signs of acute appendicitis. BOWEL: The stomach is nondistended. Lack of oral contrast limits evaluation for bowel pathology. The bowel loops appear within normal limits of caliber without evidence of intestinal obstruction. PERITONEUM: No significant free fluid. No definite free air. LYMPH NODES: Prominent sub cm mesenteric and retroperitoneal lymph nodes, nonspecific. VASCULATURE: No atherosclerotic calcifications identified. No aortic aneurysm. BONES: Degenerative changes. OTHER FINDINGS: None. IMPRESSION: No hydronephrosis or obstructing renal calculus. Punctate nonobstructing bilateral renal calculi. Prominent sub cm mesenteric and retroperitoneal lymph nodes, nonspecific.
--- NOTE | 2018-08-09 12:31 | C.PDOC ---
History Of Present Illness 43 year old male presents to ED stating "I think I have recurrent kidney stones" for the past 3 days. Patient states that the pain was initially in the right upper quadrant, is occasionally in the left upper quadrant, and is now inte rmittently in the right upper quadrant. Patient states that the pain is not associated with eating. He has a history of bilateral renal stones. Patient denies fever, nausea, and vomiting. "I THINK I HAVE RECUR KIDNEY STONES" X 3 DAYS. INITIALLY RUQ, OCC LUQ NOW INTERMIT RUQ. NO ASSOC W EATING. HO PRIOR B/L RENAL STONES. NO FEVER NV EXAM NEG Time Seen by Provider: 08/09/18 11:14 Chief Complaint (Nursing): Abdominal Pain History Per: Patient History/Exam Limitations: no limitations Onset/Duration Of Symptoms: Days (3), Intermittent Episodes Current Symptoms Are (Timing): Still Present Location Of Pain/Discomfort: RUQ, LUQ Quality Of Discomfort: "Pain" Associated Symptoms: denies: Fever, Nausea, Vomiting Past Medical History Reviewed: Historical Data, Nursing Documentation, Vital Signs Vital Signs: Last Vital Signs Temp 97.7 F 08/09/18 11:07 Pulse 76 08/09/18 12:05 Resp 18 08/09/18 12:05 BP 111/63 08/09/18 12:05 Pulse Ox 100 08/09/18 12:05 - Medical History PMH: Hypercholesterolemia, Kidney Stones, Chronic Kidney Disease, Sleep Apnea Surgical History: No Surg Hx Family History: States: Unknown Family Hx - Social History Hx Tobacco Use: No Hx Alcohol Use: Yes Hx Substance Use: No - Immunization History Hx Tetanus Toxoid Vaccination: Yes Hx Influenza Vaccination: Yes Hx Pneumococcal Vaccination: Yes Review Of Systems Constitutional: Negative for: Fever, Chills, Weakness Gastrointestinal: Positive for: Abdominal Pain (RUQ, LUQ). Negative for: Nausea, Vomiting, Diarrhea Genitourinary: Negative for: Dysuria, Hematuria Musculoskeletal: Negative for: Back Pain Neurological: Negative for: Weakness, Numbness, Dizziness Physical Exam - Physical Exam Appears: Well, Non-toxic, No Acute Distress Skin: Normal Color, Warm, Dry Head: Atraumatic, Normacephalic Neck: Normal ROM, Supple Chest: Symmetrical, No Deformity Cardiovascular: Rhythm Regular, No Murmur Respiratory: No Accessory Muscle Use, No Rales, No Rhonchi, No Wheezing, Other (NARD) Gastrointestinal/Abdominal: Soft, No Tenderness Extremity: Capillary Refill (<2 seconds) Extremity: Bilateral: Atraumatic, Normal Color And Temperature Pulses: Left Radial: Normal, Right Radial: Normal Neurological/Psych: Oriented x3, Normal Speech, Normal Cognition ED Course And Treatment - Laboratory Results Result Diagrams: 08/09/18 11:34 08/09/18 11:34 Lab Results: Total Bilirubin 0.4 mg/dL (0.2-1.3) 08/09/18 11:34 AST 54 U/L (17-59) 08/09/18 11:34 ALT 66 U/L (21-72) 08/09/18 11:34 Alkaline Phosphatase 76 U/L (38-126) 08/09/18 11:34 Total Protein 7.8 g/dL (6.3-8.3) 08/09/18 11:34 Albumin 4.7 g/dL (3.5-5.0) 08/09/18 11:34 Globulin 3.1 gm/dL (2.2-3.9) 08/09/18 11:34 Albumin/Globulin Ratio 1.5 (1.0-2.1) 08/09/18 11:34 Lipase 215 U/L (23-300) 08/09/18 11:34 Urine Color Colorless (YELLOW) 08/09/18 11:31 Urine Clarity Clear (Clear) 08/09/18 11:31 Urine pH 7.0 (5.0-8.0) 08/09/18 11:31 Ur Specific [place] 1.002 (1.003-1.030) L 08/09/18 11:31 Urine Protein Negative mg/dL (NEGATIVE) 08/09/18 11:31 Urine Glucose (UA) Normal mg/dL (Normal) 08/09/18 11:31 Urine Ketones Negative mg/dL (NEGATIVE) 08/09/18 11:31 Urine Blood 1+ (NEGATIVE) H 08/09/18 11:31 Urine Nitrate Negative (NEGATIVE) 08/09/18 11:31 Urine Bilirubin Negative (NEGATIVE) 08/09/18 11:31 Urine Urobilinogen Normal mg/dL (0.2-1.0) 08/09/18 11:31 Ur Leukocyte Esterase Neg [place]/uL (Negative) 08/09/18 11:31 Urine RBC (Auto) < 1 /hpf (0-3) 08/09/18 11:31 O2 Sat by Pulse Oximetry: 100 (RA) - CT Scan/US Abdomen/Pelvis CT Other Rad Studies (CT/US): Interpreted By Me, Read By Radiologist CT/US Interpretation: Dictator : Lucie Nicholas MD. Local Announcer : Welding Instructor : Lucie Nicholas MD. Approver2 : Report Date : 08/09/2018 11:56:08. My Comment : . PROCEDURE: CT Abdomen and Pelvis without Oral or IV contrast. HISTORY: l flank/abd pain. COMPARISON: CT abdomen and pelvis performed 09/18/17, renal ultrasound 11/22/17. TECHNIQUE: Contiguous axial images of the abdomen and pelvis. No oral or IV contrast administered. Coronal and Sagittal reformats generated and reviewed. Radiation dose: Total exam DLP = 1309.03 mGy-cm. This CT exam was performed using one or more of the following dose reduction techniques: Automated exposure control, adjustment of the mA and/or kV according to patient size, and/or use of iterative reconstruction technique. FINDINGS: There is limited evaluation of the solid organs without the administration of IV contrast. LOWER THORAX: No visible consolidation, pleural effusion, or pneumothorax. Small hiatal hernia/distal esophageal wall thickening. LIVER: Unremarkable unenhanced appearance. GALLBLADDER AND BILE DUCTS: Unremarkable unenhanced appearance. PANCREAS: Unremarkable unenhanced appearance. SPLEEN: Unremarkable unenhanced appearance. ADRENALS: Unremarkable unenhanced appearance. KIDNEYS AND URETERS: No hydronephrosis or obstructing renal calculus. Punctate nonobstructing bilateral renal calculi. BLADDER: The urinary bladder appears unremarkable. REPRODUCTIVE: The prostate gland measures approximately 4.3 x 3.8 cm. APPENDIX: The appendix appears within normal limits of caliber. No secondary signs of acute appendicitis. BOWEL: The stomach is nondistended. Lack of oral contrast limits evaluation for bowel pathology. The bowel loops appear within normal limits of caliber without evidence of intestinal obstruction. PERITONEUM: No significant free fluid. No definite free air. LYMPH NODES: Prominent sub cm mesenteric and retroperitoneal lymph nodes, nonspecific. VASCULATURE: No atherosclerotic calcifications identified. No aortic aneurysm. BONES: Degenerative changes. OTHER FINDINGS: None. IMPRESSION: No hydronephrosis or obstructing renal calculus. Punctate nonobstructing bilateral renal calculi. Prominent sub cm mesenteric and retroperitoneal lymph nodes, nonspecific. Abdominal US Other Rad Studies (CT/US): Interpreted By Me, Read By Radiologist CT/US Interpretation: Accession No. : [id number]. Patient Name / ID : EDVIN MONTOYA / [id number]. Exam Date : 08/09/2018 13:21:52 ( Approved ). Study Comment : Sex / Age : M / 43Y. Creator : Lucie Nicholas MD. Dictator : Lucie Nicholas MD. Local Announcer : Welding Instructor : Lucie Nicholas MD. Approver2 : Report Date : 08/09/2018 14:02:34. My Comment : . Date of service: 08/09/2018. HISTORY: RUQ PAIN. COMPARISON: CT abdomen and pelvis without contrast performed 08/09/18. TECHNIQUE: Sonographic evaluation of the right upper quadrant of the abdomen. FINDINGS: LIVER: Measures 18.7 cm in length. Echogenic liver may be seen in setting of hepatic parenchymal disease or fatty infiltration. No focal hepatic mass identified. The main portal vein appears patent with normal directional flow. No intrahepatic bile duct dilatation. GALLBLADDER: No gallstones. No gallbladder wall thickening or pericholecystic edema. Negative sonographic Mejia's sign as assessed by the adjuster arbitrator. COMMON BILE DUCT: Me asures 4 mm. PANCREAS: Not well-visualized. RIGHT KIDNEY: Measures approximately 12.0 x 6.1 x 6.0 cm. No obstructing calculus or hydronephrosis identified. AORTA: Limited visualization appears grossly unremarkable. IVC: Not well-visualized. OTHER FINDINGS: None . IMPRESSION: Echogenic liver may be seen in setting of hepatic parenchymal disease or fatty infiltration. Progress Note: Abdomen/Pelvic CT and Abdominal US ordered for patient. Patient given Flomax PO, Lidocaine IV, IV fluids, Toradol IVP, Tylenol PO and Zofran IVP. Labs ordered with UA for patient. Progress - Re-Evaluation Re-evaluation Note: 08/09/18 12:[address] Anya JONES @ BEDSIDE, WILL FU OFFICE. LABS WNL. WILL ABD US RO BILIARY COLIC. - Data Reviewed Data Reviewed: Lab, Diagnostic imaging, Old records Disposition Counseled Patient/Family Regarding: Studies Performed, Diagnosis, Need For Followup, Rx Given - Disposition Referrals: YOUR,PMD [Other] Disposition: HOME/ ROUTINE Disposition Time: 14:19 Condition: IMPROVED Prescriptions: Ibuprofen [Motrin] 600 mg PO Q6 #30 tab Tamsulosin [Flomax] 0.4 mg PO DAILY #14 cap Instructions: Acute Abdomen (Belly Pain), Adult (DC) Forms: [employer] (Mongolian), Work Excuse - Clinical Impression Clinical Impression: Abdominal colic - Scribe Statement The provider has reviewed the documentation as recorded by the Scribe (Bella Givens) All medical record entries made by the Scribe were at my direction and personally dictated by me. I have reviewed the chart and agree that the record accurately reflects my personal performance of the history, physical exam, medical decision making, and the department course for this patient. I have also personally directed, reviewed, and agree with the discharge instructions and disposition.
--- NOTE | 2018-08-09 14:06 | US ---
Date of service: 08/09/2018 HISTORY: RUQ PAIN COMPARISON: CT abdomen and pelvis without contrast performed 08/09/18 TECHNIQUE: Sonographic evaluation of the right upper quadrant of the abdomen. FINDINGS: LIVER: Measures 18.7 cm in length. Echogenic liver may be seen in setting of hepatic parenchymal disease or fatty infiltration. No focal hepatic mass identified. The main portal vein appears patent with normal directional flow. No intrahepatic bile duct dilatation. GALLBLADDER: No gallstones. No gallbladder wall thickening or pericholecystic edema. Negative sonographic Mejia's sign as assessed by the power system operator. COMMON BILE DUCT: Measures 4 mm. PANCREAS: Not well-visualized. RIGHT KIDNEY: Measures approximately 12.0 x 6.1 x 6.0 cm. No obstructing calculus or hydronephrosis identified. AORTA: Limited visualization appears grossly unremarkable. IVC: Not well-visualized. OTHER FINDINGS: None . IMPRESSION: Echogenic liver may be seen in setting of hepatic parenchymal disease or fatty infiltration.
[2018-08-09 14:32] VITALS: BP 120/78; PULSE 72; TEMP 98.6
[2018-08-09 15:19] VITALS: O2SAT 100
--- NOTE | 2018-08-11 20:09 | CON ---
DATE: 08/11/2018 UROLOGY CONSULTATION CONSULTATION REQUESTED BY: Natasha Garcia MD, in the [facility] Emergency Room. Urology consultation is filled by Dr. Randi Boateng. REASON FOR CONSULTATION: Abdominal pain, back pain. HISTORY OF PRESENT ILLNESS: The patient is a 43-year-old male with back pain. The patient has history of urolithiasis. He has history of renal colic. He probably had passed the stone. Stone had been previously documented on CAT scan. The patient did not retrieve the stone. However, he has subsequently had improvement in his pain. Over the past 1 to 2 days, the patient has had increased pain. The patient has had new onset of pain. The pain first involved the right upper quadrant. There was no nausea or vomiting. No fever or rigors. No hematuria. Pain is subsequently localized to the back. Pain involved the mid and low back as well. There has been no gross hematuria. However, laboratory data shows microhematuria. The patient reports that the pain is improved this afternoon. Review of the further details are reviewed as well. PHYSICAL EXAMINATION: GENERAL: The patient is well-developed, well-nourished middle-aged male. The patient is awake and alert. The patient is comfortable. ABDOMEN: Soft, nontender, nondistended. No mass or organomegaly. BACK: No CVA tenderness. CAT scan does not show evidence of urolithiasis or renal obstruction. IMPRESSION: This is a 43-year-old male. History of urolithiasis. Now with abdominal pain and back pain. Also noticed microhematuria. The patient may have passed the stone. Alternatively, there may have been a different cause for his pain. RECOMMENDATIONS/PLAN: The patient does not need admission or further urologic instrumentation at present. I am recommending outpatient followup. I also discussed with the patient regarding my previous recommendations for obtaining a 24-hour urine collection as metabolic evaluation for urolithiasis. Outpatient followup is recommended and planned. I also recommend weight loss which I discussed with the patient as well for reasons of general health as well as for therapy directed towards urolithiasis prevention. Randi Boateng MD
== END 2018-08-09 14:41 | disposition home or self-care (01) ==
LOC: C.ER 11:00
DX: R10.84 Generalized abdominal pain (principal); N18.9 Chronic kidney disease, unspecified; E78.00 Pure hypercholesterolemia, unspecified; Z87.442 Personal history of urinary calculi
CPT/HCPCS: 74176; 76705; 80053; 81001; 83690; 85025; 96361; 96374; 96375; 99285; J1885; J2001; J2405; J7030

== ENCOUNTER 2018-10-17 07:03 | Outpatient (CLI) | payer OTHER | END 2018-10-17 07:04 | disposition home or self-care (01) | LOC: C.LAB 07:03 | DX: K92.1 Melena (principal); R07.89 Other chest pain; I10 Essential (primary) hypertension; S83.2 Tear of meniscus, current injury ==

== ENCOUNTER 2018-10-18 07:23 | Outpatient (CLI) | payer OTHER | END 2018-10-18 07:24 | disposition home or self-care (01) | LOC: C.MRIC 07:23 ==